=== PATIENT | female | born 1935 | race Caucasian/White ===

== ENCOUNTER 2017-04-12 05:23 | Emergency (ER) | payer MEDICARE ==
[~2017-04-12] VITALS: Ht 162.6 cm; Wt 82.8 kg
[2017-04-12] MEDS ORDERED: METO25TA35 PO (05:48)
[2017-04-12] MEDS ORDERED: TERA1CAP3 PO (05:49)
[2017-04-12] MEDS ORDERED: NORT10CA PO (05:49)
[2017-04-12 06:22] VITALS: BP 207/78
[2017-04-12 06:42] LABS: BLOOD UREA NITROGEN 26 mg/dL (7-18)
[2017-04-12 06:45] LABS: ASPARTATE AMINO TRANSFERASE 22 U/L (15-37)
== END 2017-04-12 08:22 | disposition home or self-care (01) ==
LOC: ED 06:10
DX: S29.012A Strain of muscle and tendon of back wall of thorax, initial encounter (principal); S46.812A Strain of other muscles, fascia and tendons at shoulder and upper arm level, left arm, initial encounter; N28.9 Disorder of kidney and ureter, unspecified; E87.6 Hypokalemia; E11.40 Type 2 diabetes mellitus with diabetic neuropathy, unspecified; Z87.891 Personal history of nicotine dependence; Z95.1 Presence of aortocoronary bypass graft; W18.09XA Striking against other object with subsequent fall, initial encounter; Y93.89 Activity, other specified; Y92.89 Other specified places as the place of occurrence of the external cause; Y99.8 Other external cause status
CPT/HCPCS: 36415; 71020; 80053; 85025; 99285